=== PATIENT | female | born 1960 | race Caucasian/White ===

== ENCOUNTER 2016-11-29 20:42 | Emergency (ER) | payer SELFPAY ==
[~2016-11-29] VITALS: Ht 185.4 cm; Wt 97.9 kg
[2016-11-29 20:53] VITALS: BP 159/98; PULSE 77; RESP 16; TEMP 98; O2SAT 98
[2016-11-29] MEDS ORDERED: LEDI1TAB PO (21:06)
[2016-11-29] MEDS ORDERED: ERYTHROMYCIN 0.5% OPTH OINT 3.5 GM TUBO LEFT EYE ONE (21:30)
[2016-11-29] MEDS ORDERED: ERYTOIN10 LEFT EYE (21:39)
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
== END 2016-11-29 21:54 | disposition home or self-care (01) ==
LOC: PHEFT 20:42
DX: T20.10XA Burn of first degree of head, face, and neck, unspecified site, initial encounter (principal); X10.2XXA Contact with fats and cooking oils, initial encounter; Y93.89 Activity, other specified; Y92.512 Supermarket, store or market as the place of occurrence of the external cause; Y99.0 Civilian activity done for income or pay
CPT/HCPCS: 99283